=== PATIENT | male | born 1985 | race Asian ===

== ENCOUNTER 2019-04-29 17:35 | Emergency (ER) | payer OTHER ==
[~2019-04-29] VITALS: Ht 172.7 cm; Wt 78.9 kg
[2019-04-29 21:41] LABS: HEMATOCRIT 44.5 % (42.0-52.0); HEMOGLOBIN 14.7 g/dl (13.5-17.5); MEAN CORPUSCULAR HEMOGLOBIN 30.4 pg (27.0-33.0); MEAN CORPUSCULAR VOLUME 92.1 fl (80.0-96.0); PLATELET COUNT, AUTOMATED 226 10^3/uL (150-450); RED BLOOD COUNT 4.83 10^6/uL (4.30-6.10); WHITE BLOOD COUNT 12.8 10^3/uL (4.0-10.0)
[2019-04-29] MEDS ORDERED: CEPHALEXIN 500 MG CAP PO ONE (21:45)
[2019-04-29] MEDS ORDERED: BENZ200C70 PO (22:15)
[2019-04-29] MEDS ORDERED: IBUP-1022 PO (22:15)
[2019-04-29] MEDS ORDERED: KEFL500C17 PO (22:15)
[2019-04-29 22:27] VITALS: BP 120/80
[2019-04-29 22:29] LABS: ALBUMIN 3.7 GM/DL (3.2-5.2); ALT/SGPT 22 U/L (12-78); BILIRUBIN,TOTAL 0.4 MG/DL (0.2-1.0); BLOOD UREA NITROGEN 6 MG/DL (7-18); CALCIUM LEVEL 8.4 MG/DL (8.5-10.1); CARBON DIOXIDE LEVEL 26 MEQ/L (21-32); CHLORIDE LEVEL 106 MEQ/L (98-107); CREATININE FOR GFR 0.93 MG/DL (0.70-1.30); GLOMERULAR FILTRATION RATE > 60.0 (>60); GLUCOSE, FASTING 91 MG/DL (70-100); POTASSIUM SERUM 3.8 MEQ/L (3.5-5.1); SODIUM LEVEL 139 MEQ/L (136-145); TOTAL PROTEIN 7.6 GM/DL (6.4-8.2)
--- NOTE | 2019-04-30 07:21 | REP ---
PA and lateral chest: There are no comparisons. The lung melgar are clear. The cardiac size is normal. The booker, mediastinum, and skeletal structures are unremarkable. Impression: Negative PA and lateral chest. Electronically Signed by Kvng Gomez MD 04/30/2019 07:13 A
== END 2019-04-29 22:26 | disposition home or self-care (01) ==
LOC: M ED 17:35
DX: J02.0 Streptococcal pharyngitis (principal)